=== PATIENT | male | born 1980 | race Caucasian/White ===

== ENCOUNTER → 2020-04-23 | Outpatient (CLI) | payer BC, OTHER ==
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
== END ==
LOC: CT 19:49
PROVIDERS: ATTEND Family Medicine
DX: S06.0X9A Concussion with loss of consciousness of unspecified duration, initial encounter (principal); X58.XXXA Exposure to other specified factors, initial encounter; Y93.89 Activity, other specified; Y92.89 Other specified places as the place of occurrence of the external cause; Y99.8 Other external cause status
CPT/HCPCS: 70450

== ENCOUNTER → 2020-06-02 | Outpatient (CLI) | payer OTHER, BC ==
[~2020-06-02] MED LIST: HYDR-2761 PO; IOHEXOL 180 MG/ML 10 ML VIAL. ONE; SERT50TA PO; methylPREDNISolone ACETATE 40 MG/ML VIAL. ONE; methylPREDNISolone ACETATE 80 MG/ML VIAL. ONE
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
== END | disposition home or self-care (01) ==
LOC: PNCL 11:24
PROVIDERS: ATTEND Anesthesiology
DX: M54.2 Cervicalgia (principal); M25.512 Pain in left shoulder; Z79.899 Other long term (current) drug therapy
CPT/HCPCS: 62321; J1030; J1040; Q9965

== ENCOUNTER → 2020-06-18 | Outpatient (CLI) | payer OTHER, BC ==
--- NOTE | 2020-06-18 10:38 | PDOC ---
Progress Note - Pain Clinic Date of Service: DOS: DATE: 06/18/20 TIME: 10:35 Diagnosis: Dx: Cervical radiculopathy with cervical degenerative disc disease History or Present Illness: HPI: 39-year-old male returns follow-up status post cervical epidural steroid traction x1. Patient reports about 2% improvement in that his pain is still present in the base the neck and shoulders but the left arm is almost 100% improved. Patient reports no significant pain in the arm is very pleased with this but with increased activity does increase the pain to a mild extent in the arm otherwise the pain is on the base the neck and shoulder more on the left side. Patient reports it is a 9 on scale 10 is worse over the past week 8 on average 5 its least and is a 5 today patient ports is aching and dull occasionally shooting left arm but very rare now he is very pleased with his progress doing increased activities greater ease and comfort sleeping better at night does not awaken from sleep generally but can if he lays on his left side long enough. Patient reports no new motor or sensory deficits no new bowel or bladder consult complaints. Physical Exam: VS: Blood pressure is 141/60 pulse 80 respirations 18 temperature 90.4 F height is 5 foot 9 inches weight is 198 pounds. PE: PHYSICAL EXAMINATION: GENERAL: The patient is awake, alert, oriented, appropriate, very pleasant demeanor HEENT: Shows normocephalic, atraumatic. Extraocular movements are intact and symmetrical. Oral cavity: Mucous membranes moist and pink. NECK: Shows anterior throat supple without palpable lymphadenopathy noted. Swallow reflex symmetrical. CHEST: Shows normal on inspection. Breath sounds are clear bilaterally. HEART: Shows S1, S2 clear. No murmurs auscultated. ABDOMEN: Soft, nontender, nondistended. No palpable organomegaly is noted. BACK: Shows spine grossly in the midline. Normal-appearing cervical lordotic curvature. There is slightly increased thoracic kyphosis, some minor flattening of the lumbar lordotic curvature. Lumbar paraspinous muscles show symmetrical on inspection, on palpation shows some moderate tenderness diffusely throughout the upper, middle and lower distribution of the paraspinous muscles without specific trigger points, without radiation of pain. The patient has good rotational motion of the lumbar spine, both laterally as well as extension and flexion without significant difficulty. No tenderness over the spinous processes, sacrum or sacroiliac regions. EXTREMITIES: Upper extremities show deep tendon reflexes 2+ in the biceps and triceps tendons. Motor exam is 5 on a scale of 5 with right county library director strength, biceps and triceps flexion and 5/5 on the left. Peripheral pulses are 2+ radial. No peripheral edema is noted bilaterally. Upper extremities are warm and dry to touch, equal in color and appearance. SKIN: Shows warm and dry, good turgor. No edema. No sores, rashes or bruising throughout. Procedure: Procedure: Options were discussed with the patient. Patient chart reviewed his current medication regimen updated current review of systems updated today as well. We will proceed with a second cervical epidural steroid injection today with fluoroscopic guidance. Risks were discussed including but not limited to: Bleeding, infection, possibility of epidural hematoma and subsequent neurological compromise, dural puncture, headaches, spinal cord and/or nerve damage, side effects of steroid medication, and poor results regarding pain control. Patient understands wished to proceed. Patient will return to clinic in approximate 2 weeks for follow-up with counselors return appointment activity level and side effects to be aware of. Medication Injected: Med Injected: Procedure cervical epidural steroid injection at the C6-7 level, using local anesthetic under sterile prep and drape using C-arm fluoroscopic guidance under local anesthesia medications injected ; 120 mg Depo-Medrol + 5 mL normal saline and 2 mL contrast; condition at discharge is stable patient tolerated procedure well. and had no complications Condition at Discharge: Condition at Discharge: Condition at discharge stable, patient on the procedure well and had no complications. KEMI PATRICIA MD Jun 18, 2020 10:38
== END | disposition home or self-care (01) ==
LOC: PNCL 10:06
PROVIDERS: ATTEND Anesthesiology
DX: M50.10 Cervical disc disorder with radiculopathy, unspecified cervical region (principal); Z79.899 Other long term (current) drug therapy; Z98.890 Other specified postprocedural states
CPT/HCPCS: 62321; J1030; J1040; Q9965

== ENCOUNTER → 2020-07-14 | Outpatient (CLI) | payer OTHER, BC ==
--- NOTE | 2020-07-14 09:15 | PDOC ---
Progress Note - Pain Clinic Date of Service: DOS: DATE: 07/14/20 TIME: 09:10 Diagnosis: Dx: Cervical radiculopathy with cervical degenerative disc disease History or Present Illness: HPI: 39-year-old male returns for follow-up status post cervical epidural steroid injections x2. Patient reports only about 50% improvement overall still some significant pain in the base the neck and left shoulder upper extremity as well as headaches neck pain and some on the right side as well. Patient reports he still doing physical therapy has about 2 weeks left of that I encouraged him to maintain that schedule and to do duties stretches at this instructed at home as well. Patient reports pain is still the base the neck most in the left upper extremity posterior deltoid lateral deltoid anterior bicep posterior tricep forearm and hand with some numbness and tingling patient describes pain as aching in the neck sharp and dull in the arm with tingling in the hand patient reports no loss of motor function but significant fatigability with left arm with repetitive motions. Patient reports pain is 8 on scale 10 is worse over the past week 6 on average 5-6 is a 6 today. Patient reports no new motor or sensory deficits. Physical Exam: VS: Blood pressure is 154/105 pulse 81 respirations 18,Height is 5 feet 9 inches weight is 217 pounds PE: PHYSICAL EXAMINATION: GENERAL: The patient is awake, alert, oriented, appropriate, very pleasant demeanor HEENT: Shows normocephalic, atraumatic. Extraocular movements are intact and symmetrical. NECK: Shows anterior throat supple without palpable lymphadenopathy noted. Swallow reflex symmetrical. CHEST: Shows normal on inspection. Breath sounds are clear bilaterally. HEART: Shows S1, S2 clear. No murmurs auscultated. ABDOMEN: Soft, nontender, nondistended, obese. No palpable organomegaly is noted. BACK: Shows spine grossly in the midline. Normal-appearing cervical lordotic curvature. Cervical paraspinous muscles show symmetrical with inspection on palpation some moderate tenderness diffusely throughout the upper middle lower distribution paraspinous muscles bilaterally somewhat more tender on the left than the right but without asymmetry. Patient has good rotational motion of the cervical spine both laterally greater than 45 degrees closer to 90 degrees with some moderate pain in the base of the neck and shoulder right and left with full rotation full extension full forward flexion is performed out significant increase in pain. There is slightly increased thoracic kyphosis, some minor flattening of the lumbar lordotic curvature. EXTREMITIES: Upper extremities show deep tendon reflexes 2+ in the biceps and triceps tendons. Motor exam is 5 on a scale of 5 with right portable irrigation operator, biceps and triceps flexion and 5/5 on the left. Peripheral pulses are 2+ radial. No peripheral edema is noted bilaterally. Upper extremities are warm and dry to touch, equal in color and appearance. SKIN: Shows warm and dry, good turgor. No edema. No sores, rashes or bruising throughout. Procedure: Procedure: Options were discussed with the patient. Patient chart was reviewed his current medication regimen updated current review of systems updated today as well. We will proceed with a third in a series cervical epidural steroid injection today with fluoroscopic guidance. Risks were discussed including but not limited to: Bleeding, infection, possibility of epidural hematoma and subsequent neurological compromise, dural puncture, headaches, spinal cord and/or nerve damage, side effects of steroid medication, and poor results regarding pain control. Patient understands wished to proceed. Patient return to clinic in approximate 2 weeks for follow-up, was counseled as to return appointment activity level and side effects to be aware of. Patient will continue with physical therapy as instructed. Medication Injected: Med Injected: Procedure cervical epidural steroid injection at the C6-7 level, using local anesthetic under sterile prep and drape using C-arm fluoroscopic guidance under local anesthesia medications injected ; 120 mg Depo-Medrol + 5 mL normal saline and 2 mL contrast; condition at discharge is stable patient tolerated procedure well. and had no complications Condition at Discharge: Condition at Discharge: Condition at discharge stable, patient tolerated procedure well had no complications. KEMI PATRICIA MD Jul 14, 2020 09:15
== END | disposition home or self-care (01) ==
LOC: PNCL 08:34
PROVIDERS: ATTEND Anesthesiology
DX: M50.10 Cervical disc disorder with radiculopathy, unspecified cervical region (principal); Z79.899 Other long term (current) drug therapy
CPT/HCPCS: 62321; J1030; J1040; Q9965; 62323